=== PATIENT | female | born 1960 | race African-American/Black ===

== ENCOUNTER 2018-11-10 14:53 | Emergency (ER) | payer MEDICAID ==
[~2018-11-10] VITALS: Ht 167.6 cm; Wt 63.6 kg
[2018-11-10 15:01] VITALS: Ht 167.6 cm; Wt 63.6 kg
[2018-11-10] MEDS ORDERED: LISINOPRIL-HCT1 EAC4 PO (15:05)
[2018-11-10] MEDS ORDERED: ALBUTEROL SULF8.5 GM INH (16:21)
[2018-11-10] MEDS ORDERED: AUGMENTIN 875-11 TAB PO (16:21)
[2018-11-10] MEDS ORDERED: SUDOGEST SINUS1 EACH PO (16:21)
[2018-11-10 17:08] VITALS: BP 160/92
== END 2018-11-10 17:08 | disposition home or self-care (01) ==
LOC: D.ER 14:53
DX: J06.9 Acute upper respiratory infection, unspecified (principal); R05 Cough

== ENCOUNTER 2020-08-21 17:39 | Emergency (ER) | payer BC ==
[~2020-08-21] VITALS: Ht 167.6 cm; Wt 54.5 kg
[~2020-08-21 17:39] MED LIST: ALBUTEROL SULF8.5 GM INH; AUGMENTIN 875-11 TAB PO; LISINOPRIL-HCT1 EAC4 PO; SUDOGEST SINUS1 EACH PO
[2020-08-21 17:44] VITALS: Ht 167.6 cm; Wt 54.5 kg
[2020-08-21 18:08] LABS: BASOPHILS 0.8 % (0-2); EOSINOPHILS 1.5 % (0-7); HEMATOCRIT 45.3 % (36.0-48.0); HEMOGLOBIN 14.9 g/dL (12-16); LYMPHOCYTES 43.6 % (15-50); MCH 30.2 pg (26.0-34.0); MCHC 32.8 g/dL (31.0-37.0); MCV 92.2 fL (80.0-100.0); MEAN PLATELET VOLUME 9.1 fL (7.4-10.4); MONOCYTES 9.8 % (2-11); NEUTROPHILS 44.3 % (40-80); PLATELET COUNT 248 10x3/uL (130-400); RBC 4.92 10x6/uL (4.00-5.40); RDW 14.4 % (11.5-14.5); WBC 6.7 10x3/uL (4.8-10.8)
[2020-08-21 18:16] LABS: ANION GAP 12.7 mmol/L (8-16); CALCIUM 8.8 mg/dL (8.5-10.1); CARBON DIOXIDE 29.2 mmol/L (21.0-32.0); CREATININE - SERUM 0.9 mg/dL (0.6-1.3); POTASSIUM - SERUM 3.9 mmol/L (3.5-5.1)
[2020-08-21 18:22] LABS: ALBUMIN 3.2 g/dL (3.4-5.0); BILIRUBIN - TOTAL 0.2 mg/dL (0.2-1.3); PROTEIN - SERUM 7.1 g/dL (6.4-8.2)
[2020-08-21 19:19] LABS: BILIRUBIN NEGATIVE (NEGATIVE); KETONE NEGATIVE (NEGATIVE); NITRITE NEGATIVE (NEGATIVE); UROBILINOGEN NORMAL mg/dL (< 2)
[2020-08-21 21:18] VITALS: BP 132/74
== END 2020-08-21 21:19 | disposition home or self-care (01) ==
LOC: D.ER 17:39
PROVIDERS: Family Medicine
DX: R10.9 Unspecified abdominal pain (principal); I10 Essential (primary) hypertension; Z72.0 Tobacco use